=== PATIENT | female | born 1995 | race African-American/Black ===

== ENCOUNTER 2016-06-20 11:57 | Emergency (ER) | payer OTHER ==
[2016-06-20] MEDS ORDERED: ACETAMINOPHEN TAB 325 MG TAB PO STA (12:21)
[2016-06-20] MEDS ORDERED: SODIUM CHLORIDE 0.9% 1,000 ML IV STA (12:21)
[2016-06-20] MEDS ORDERED: ONDANSETRON 4 MG/2 ML VIAL IVP STA ×2 (12:36→14:57)
--- NOTE | 2016-06-20 12:36 | ED ---
Fever HPI - General Chief Complaint: Fever Stated Complaint: Syncope Time Seen by Provider: 06/20/16 12:19 Source: patient Mode of arrival: EMS Limitations: no limitations - History of Present Illness Initial Comments: 20-year-old female states that she has had a fever vomiting and diarrhea for the last 6 days. She has no abdominal pain. She had no blood or mucus in the stool. She was seen at [facility] last night she states they gave her Zofran to the test did not do any x-rays. Or urine specimen. States she's had a mild cough no runny nose earache she has a lot of muscle and body aches. 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 Question of malformation. She states her periods regular and had a test at the other hospital last night. She just had her period this week. - Related Data Home Medications Medication Instructions Recorded Confirmed Butalb/APAP/Caff 50-325-40Mg 1 tab PO BID PRN 06/20/16 06/20/16 [Fioricet 50-325-40] Ibuprofen [Motrin] 800 mg PO BID PRN 06/20/16 06/20/16 Topiramate [Topamax] 50 mg PO QID 06/20/16 06/20/16 levETIRAcetam [Keppra] 500 mg PO Q12H 06/20/16 06/20/16 Allergies Allergy/AdvReac Type Severity Reaction Status Date / Time Sesame Seed Allergy Anaphylaxis Verified 06/20/16 15:21 Review of Systems ROS Statement: Those systems with pertinent positive or pertinent negative responses have been documented in the HPI. ROS Other: All systems not noted in ROS Statement are negative. Constitutional: Reports: fever, chills, weakness Eyes: Denies: eye discharge ENT: Denies: ear pain, throat pain Respiratory: Reports: cough Cardiovascular: Denies: chest pain Endocrine: Reports: fatigue Gastrointestinal: Reports: nausea, vomiting, diarrhea. Denies: abdominal pain Genitourinary: Denies: urgency, dysuria, frequency Skin: Denies: rash Neurological: Denies: headache Hematological/Lymphatic: Denies: easy bleeding, easy bruising Past Medical History Past Medical History: Asthma Additional Past Medical History / Comment(s): pt reports defect on her brain but is not able to remember what its called, it occasionally bleeds. History of Any Multi-Drug Resistant Organisms: MRSA Date of last positivie culture/infection: 2008 Additional Past Surgical History / Comment(s): MRSA bilateral inner thighs 2007 and 2008 Past Psychological History: Anxiety, Depression Smoking Status: Former smoker Past Alcohol Use History: None Reported Past Drug Use History: None Reported General Exam Limitations: no limitations General appearance: alert, other (Appears ill) Head exam: Present: atraumatic Eye exam: Present: normal appearance, PERRL, EOMI. Absent: scleral icterus ENT exam: Present: normal oropharynx, mucous membranes dry, TM's normal bilaterally Neck exam: Present: normal inspection. Absent: tenderness, meningismus Respiratory exam: Present: normal lung sounds bilaterally Cardiovascular Exam: Present: normal rhythm, normal heart sounds GI/Abdominal exam: Present: soft, tenderness (Right upper quadrant) Neurological exam: Present: alert, CN II-XII intact Psychiatric exam: Present: normal affect, normal mood Skin exam: Present: warm, dry Course Vital Signs 06/20/16 06/20/16 06/20/16 12:09 13:42 14:10 Temperature 101 F H 99.8 F H Pulse Rate 116 H 106 H 109 H Respiratory 22 22 16 Rate Blood Pressure 124/67 113/61 114/65 O2 Sat by Pulse 99 100 99 Oximetry 06/20/16 14:40 Temperature Pulse Rate 97 Respiratory 16 Rate Blood Pressure 117/75 O2 Sat by Pulse 100 Oximetry - Reevaluation(s) Reevaluation #1: 06/20/16 15:48 Informed by staff that her insurance [employer] requires transfer, staff spoke to [facility] and give us a list of hospitals [facility] and [facility]. Family would prefer to go to [facility] they were called he would need authorization and currently they have no beds level red and would not accept. Family has agreed to be transferred to [facility] Reevaluation #2: 06/20/16 15:57 Dr. Mcdermott accepts transfer at [facility] Medical Decision Making - Medical Decision Making Social feels nauseated some diarrhea x-ray shows an infiltrate still feels very weak will speak to Dr. Wu the on-call doctor regarding admission - Lab Data Result diagrams: 06/20/16 12:43 06/20/16 12:43 Lab Results 06/20/16 06/20/16 06/20/16 Range/Units 12:43 12:43 12:43 WBC 12.0 H (3.8-10.6) k/uL RBC 4.43 (3.80-5.40) m/uL Hgb 12.0 (11.4-16.0) gm/dL Hct 35.9 (34.0-46.0) % MCV 81.1 (80.0-100.0) fL MCH 27.1 (25.0-35.0) pg MCHC 33.4 (31.0-37.0) g/dL RDW 13.7 (11.5-15.5) % Plt Count 190 (150-450) k/uL Neutrophils % 87 % Lymphocytes % 8 % Monocytes % 5 % Eosinophils % 0 % Basophils % 0 % Neutrophils # 10.4 H (1.3-7.7) k/uL Lymphocytes # 0.9 L (1.0-4.8) k/uL Monocytes # 0.6 (0-1.0) k/uL Eosinophils # 0.0 (0-0.7) k/uL Basophils # 0.0 (0-0.2) k/uL ESR 18 (0-20) mm/hr Sodium 138 (137-145) mmol/L Potassium 4.0 (3.5-5.1) mmol/L Chloride 108 H (98-107) mmol/L Carbon Dioxide 17 L (22-30) mmol/L Anion Gap 13 mmol/L BUN 4 L (7-17) mg/dL Creatinine 0.99 (0.52-1.04) mg/dL Est GFR (MDRD) Af Amer >60 (>60 ml/min/1.73 sqM) Est GFR (MDRD) Non-Af >60 (>60 ml/min/1.73 sqM) Glucose 100 H (74-99) mg/dL Plasma Lactic Acid Ethan (0.7-2.0) mmol/L Calcium 9.1 (8.4-10.2) mg/dL Total Bilirubin 0.7 (0.2-1.3) mg/dL AST 61 H (14-36) U/L ALT 50 (9-52) U/L Alkaline Phosphatase 78 (38-126) U/L Creatine Kinase 133 (30-135) U/L Total Protein 7.4 (6.3-8.2) g/dL Albumin 4.2 (3.5-5.0) g/dL Urine Color Urine Appearance (Clear) Urine pH (5.0-8.0) Ur Specific [place] (1.001-1.035) Urine Protein (Negative) Urine Glucose (UA) (Negative) Urine Ketones (Negative) Urine Blood (Negative) Urine Nitrate (Negative) Urine Bilirubin (Negative) Urine Urobilinogen (<2.0) mg/dL Ur Leukocyte Esterase (Negative) Urine RBC (0-5) /hpf Urine WBC (0-5) /hpf Ur Squamous Epith Cells (0-4) /hpf Urine Bacteria (None) /hpf Urine Mucus (None) /hpf Influenza Type A RNA Not Detected (Not Detectd) Influenza Type B (PCR) Not Detected (Not Detectd) 06/20/16 06/20/16 Range/Units 12:43 12:43 WBC (3.8-10.6) k/uL RBC (3.80-5.40) m/uL Hgb (11.4-16.0) gm/dL Hct (34.0-46.0) % MCV (80.0-100.0) fL MCH (25.0-35.0) pg MCHC (31.0-37.0) g/dL RDW (11.5-15.5) % Plt Count (150-450) k/uL Neutrophils % % Lymphocytes % % Monocytes % % Eosinophils % % Basophils % % Neutrophils # (1.3-7.7) k/uL Lymphocytes # (1.0-4.8) k/uL Monocytes # (0-1.0) k/uL Eosinophils # (0-0.7) k/uL Basophils # (0-0.2) k/uL ESR (0-20) mm/hr Sodium (137-145) mmol/L Potassium (3.5-5.1) mmol/L Chloride (98-107) mmol/L Carbon Dioxide (22-30) mmol/L Anion Gap mmol/L BUN (7-17) mg/dL Creatinine (0.52-1.04) mg/dL Est GFR (MDRD) Af Amer (>60 ml/min/1.73 sqM) Est GFR (MDRD) Non-Af (>60 ml/min/1.73 sqM) Glucose (74-99) mg/dL Plasma Lactic Acid Ethan 1.3 (0.7-2.0) mmol/L Calcium (8.4-10.2) mg/dL Total Bilirubin (0.2-1.3) mg/dL AST (14-36) U/L ALT (9-52) U/L Alkaline Phosphatase (38-126) U/L Creatine Kinase (30-135) U/L Total Protein (6.3-8.2) g/dL Albumin (3.5-5.0) g/dL Urine Color Light Yellow Urine Appearance Cloudy H (Clear) Urine pH 5.0 (5.0-8.0) Ur Specific [place] 1.008 (1.001-1.035) Urine Protein Trace H (Negative) Urine Glucose (UA) Negative (Negative) Urine Ketones 1+ H (Negative) Urine Blood Negative (Negative) Urine Nitrate Negative (Negative) Urine Bilirubin Negative (Negative) Urine Urobilinogen <2.0 (<2.0) mg/dL Ur Leukocyte Esterase Negative (Negative) Urine RBC <1 (0-5) /hpf Urine WBC 3 (0-5) /hpf Ur Squamous Epith Cells 4 (0-4) /hpf Urine Bacteria Rare H (None) /hpf Urine Mucus Rare H (None) /hpf Influenza Type A RNA (Not Detectd) Influenza Type B (PCR) (Not Detectd) 06/20/16 12:37 EKG 06/20/2016 at 1225. Ventricular rate 120 bpm, PA interval 126 ms, QRS duration 74 ms, QT interval 304 ms, sinus tachycardia otherwise normal ECG - Radiology Data Radiology results: report reviewed The cardiomediastinal silhouette, aorta, pulmonary vasculature are within normal limits. There appears to be a patchy right upper lobe opacity on the frontal view. No other consolidation or pleural fusion impression was patchy airspace disease right upper lobe unable to exclude early pneumonia Disposition Clinical Impression: Pneumonia Disposition: OTHER INSTITUTION NOT DEFINED Condition: Fair Referrals: None,Stated [Primary Care Provider] - 1-2 days Time of Disposition: 15:11 - Out of Hospital Transfer - Req. Specs Out of Hospital Transfer - Requested Specifics: Other Emergency Center
[2016-06-20 13:03] LABS: Basophils % (A) 0 %; CH 28.3; Eosinophils % (A) 0 %; HCT 35.9 % (34.0-46.0); HDW 2.49; Luc # (Auto) 0.08; Luc % (Auto) 1; Lymphocytes # (A) 0.9 k/uL (1.0-4.8); Lymphocytes % (A) 8 %; MCH 27.1 pg (25.0-35.0); MCHC 33.4 g/dL (31.0-37.0); MCV 81.1 fL (80.0-100.0); Mean Platelet Volume 8.2; Monocytes # (A) 0.6 k/uL (0-1.0); Monocytes % (A) 5 %; Neutrophils # (A) 10.4 k/uL (1.3-7.7); Neutrophils % (A) 87 %; RBC 4.43 m/uL (3.80-5.40); RDW 13.7 % (11.5-15.5); WBC (Perox) 12.52
[2016-06-20 13:24] LABS: ALT 50 U/L (9-52); AST 61 U/L (14-36); Alkaline Phosphatase 78 U/L (38-126); Anion Gap 13 mmol/L; Blood Urea Nitrogen 4 mg/dL (7-17); Calcium 9.1 mg/dL (8.4-10.2); Carbon Dioxide 17 mmol/L (22-30); Chloride 108 mmol/L (98-107); Creatine Kinase 133 U/L (30-135); Glucose 100 mg/dL (74-99); Non-African American GFR(MDRD) >60 (>60 ml/min/1.73 sqM); Sodium 138 mmol/L (137-145); Total Bilirubin 0.7 mg/dL (0.2-1.3); Total Protein 7.4 g/dL (6.3-8.2)
--- NOTE | 2016-06-20 13:25 | XR ---
EXAMINATION TYPE: XR chest 2V DATE OF EXAM: 06/20/2016 1:12 PM COMPARISON: None HISTORY: 20-year-old female with pain, body aches all over, cough, congestion, and fever for days. TECHNIQUE: PA and lateral views FINDINGS: The cardiomediastinal silhouette, aorta, and pulmonary vasculature are within normal limits. There ap pears to be patchy right upper lobe opacity on the frontal view. No other consolidation or pleural ef fusion. IMPRESSION: Patchy airspace disease right upper lobe. Unable to exclude early pneumonia.
[2016-06-20] MEDS ORDERED: AZITHROMYCIN 500 MG in SODIUM CHLORIDE 0.9% 250 ML IVPB STA (13:44)
[2016-06-20 13:54] LABS: Erythrocyte Sedimentation Rate 18 mm/hr (0-20)
[2016-06-20 14:01] LABS: Appearance,Urine Cloudy (Clear); Bacteria,Urine Rare /hpf; Bilirubin,Urine Negative (Negative); Glucose,Urine (UA) Negative (Negative); Ketones,Urine 1+ (Negative); Leukocyte Esterase,Urine Negative (Negative); Mucus,Urine Rare /hpf; Nitrite,Urine Negative (Negative); Particle Count 2830; Protein,Urine Trace (Negative); RBC,Urine <1 /hpf (0-5); Specific Gravity,Urine 1.008 (1.001-1.035); Squamous Epithelial Cell,Urine 4 /hpf (0-4); UA Billing (MACRO vs. MICRO) MICRO; Urobilinogen,Urine <2.0 mg/dL (<2.0); WBC,Urine 3 /hpf (0-5)
[2016-06-20 16:17] VITALS: RESP 18; TEMP 99.6
[2016-06-20 16:54] VITALS: BP 107/64; PULSE 97
== END 2016-06-20 16:40 | disposition other institution (70) ==
LOC: EC 11:57
DX: J18.9 Pneumonia, unspecified organism (principal); Z87.891 Personal history of nicotine dependence; Z91.018 Allergy to other foods; Z79.899 Other long term (current) drug therapy
CPT/HCPCS: 99285; 96365; 96366; 96375 ×2; 96361; 36415; 93005; 80053; 85652; 82550; 83605; 85025; 81001; 87040; 87086; 87077; 87186; 87502; 71020; J2405; J0456; J0696

== ENCOUNTER 2017-12-14 16:20 | Emergency (ER) | payer OTHER ==
[2017-12-14 16:29] VITALS: RESP 18
[2017-12-14] MEDS ORDERED: SODIUM CHLORIDE 0.9% 1,000 ML IV STA (16:34)
[2017-12-14 16:53] LABS: Basophils % (A) 0 %; Eosinophils # (A) 0.2 k/uL (0-0.7); Eosinophils % (A) 3 %; HCT 32.2 % (34.0-46.0); HGB 10.9 gm/dL (11.4-16.0); Lymphocytes # (A) 1.9 k/uL (1.0-4.8); Lymphocytes % (A) 28 %; MCH 28.3 pg (25.0-35.0); MCHC 33.7 g/dL (31.0-37.0); Mean Platelet Volume 7.5; Monocytes # (A) 0.5 k/uL (0-1.0); Monocytes % (A) 8 %; Neutrophils # (A) 4.2 k/uL (1.3-7.7); Neutrophils % (A) 60 %; Platelet Count 248 k/uL (150-450); RBC 3.83 m/uL (3.80-5.40); RDW 13.8 % (11.5-15.5); WBC 6.9 k/uL (3.8-10.6)
[2017-12-14 17:06] LABS: ALT 19 U/L (9-52); AST 26 U/L (14-36); Albumin 3.9 g/dL (3.5-5.0); Alkaline Phosphatase 44 U/L (38-126); Anion Gap 11 mmol/L; Blood Urea Nitrogen 6 mg/dL (7-17); Calcium 9.7 mg/dL (8.4-10.2); Carbon Dioxide 23 mmol/L (22-30); Chloride 103 mmol/L (98-107); Glucose 70 mg/dL (74-99); Potassium 3.9 mmol/L (3.5-5.1); Sodium 137 mmol/L (137-145); Total Bilirubin 0.5 mg/dL (0.2-1.3); Total Protein 6.8 g/dL (6.3-8.2)
--- NOTE | 2017-12-14 17:14 | ED ---
General Adult HPI - General Chief complaint: Seizure Stated complaint: Unresponsive Source: EMS Mode of arrival: EMS - History of Present Illness Initial comments: Dictation was produced using [employer] dictation software. please excuse any grammatical, word or spelling errors. Chief Complaint: 22-year-old Rican female past medical history of seizures on Keppra presents after a seizure episode today. History of Present Illness: Is a 22-year-old -Wallis[place] female who was at work at work today when she encountered allegedly seizure that was observed by bystanders. Patient has a history of seizure for which she takes Keppra. Patient states she's approximate 5 months . Patient used to take Keppra and Topamax. She has been managed by neurology. She was told to stop taking her Topamax. She takes Keppra 1000 mg twice a day per she states she's been compliant with her medications. Prior to the seizure she has had visual disturbances and has had mild headaches. Patient takes vitamins. According to bystanders patient had tonic-clonic like activity. EMS evaluated patient give her 5 mg of IV Versed with cessation of tonic-clonic activity. Been having issues with vaginal bleeding during this . The ROS documented in this emergency department record has been reviewed and confirmed by me. Those systems with pertinent positive or negative responses have been documented in the HPI. All other systems are other negative and/or noncontributory. - Related Data Home Medications Medication Instructions Recorded Confirmed Folic Acid 1 mg PO DAILY 12/14/17 12/14/17 Metoclopramide [Reglan] 10 mg PO DAILY 12/14/17 12/14/17 Ondansetron [Zofran] 4 mg PO BID 12/14/17 12/14/17 Did-Vldl-Jlfik Acid 1 cap PO DAILY 12/14/17 12/14/17 [-U Capsule (formulary)] Terconazole 0.8% Vaginal Cream 1 applic VAGINAL HS 12/14/17 12/14/17 [Terazol 3] levETIRAcetam [Keppra] 1,000 mg PO DAILY 12/14/17 12/14/17 Allergies Allergy/AdvReac Type Severity Reaction Status Date / Time Sesame Seed Allergy Anaphylaxis Verified 12/14/17 16:58 Review of Systems ROS Statement: Those systems with pertinent positive or pertinent negative responses have been documented in the HPI. ROS Other: All systems not noted in ROS Statement are negative. Past Medical History Past Medical History: Asthma Additional Past Medical History / Comment(s): pt reports defect on her brain but is not able to remember what its called, it occasionally bleeds. History of Any Multi-Drug Resistant Organisms: MRSA Date of last positivie culture/infection: 2008 Additional Past Surgical History / Comment(s): MRSA bilateral inner thighs 2007 and 2008 Past Psychological History: Anxiety, Depression Smoking Status: Former smoker Past Alcohol Use History: None Reported Past Drug Use History: None Reported General Exam - General Exam Comments Initial Comments: PHYSICAL EXAM: General Impression: Alert and oriented x3, not in acute distress HEENT: Normocephalic atraumatic, extra-ocular movements intact, pupils equal and reactive to light bilaterally, mucous membranes moist. Cardiovascular: Heart regular rate and rhythm, S1&S2 audible, no murmurs, rubs or gallops Chest: Lungs clear to auscultation bilaterally, no rhonchi, no wheeze, no rales Abdomen: Bowel sounds present, abdomen soft, non-tender, non-distended, no organomegaly Musculoskeletal: Pulses present and equal in all extremities, no peripheral edema Motor: Power 5/5 bilaterally, no focal deficits noted Neurological: CN II-XII grossly intact, no focal motor or sensory deficits noted Skin: Intact with no visualized rashes Psych: Normal affect and mood Course Vital Signs 12/14/17 12/14/17 12/14/17 16:21 16:47 19:41 Pulse Rate 97 92 77 Respiratory 18 18 18 Rate Blood Pressure 105/60 97/57 97/56 O2 Sat by Pulse 100 100 100 Oximetry Medical Decision Making - Medical Decision Making 22-year-old -Wallis[place] female who states she is 5 months presents after suspected seizure. Patient does have history of epilepsy. Patient has been complaining of recent headaches and visual disturbances for the past couple days. Patient denies any history of blood clots however does state there is family history of blood clots. Laboratory evaluation obtained. Hemoglobin 10.9. Rest of CBC is unremarkable. Metabolic panel is unremarkable. No anion gap. MRV an MRI was obtained. MRI demonstrated 1.1 cm diameter in the right mid temporal lobe cavernous malformation. MRV did not show any findings of dural thromboses or abnormalities. Discussed these imaging findings with patient. Patient states she has known history of mass in her right temporal lobe. She states that she was told it was about the size of a dime. Patient has established care with neurologist in [place]. The reason why her neurologist is so far with patient recently moved to this area. She normally takes Topamax and Keppra however because she is Topamax was discontinued at the moment. At this point, doubt any tonic-clonic seizure episode today given that no physical exam findings of seizure. It is possible that patient experienced a smaller non-generalized seizure. Patient given 1 g of Keppra. Patient given the option of being discharged if she can follow-up with her neurologist versus transfer to another facility with more robust neurologic services. She states that she can follow up with her neurologist tomorrow. She will have transportation with her diana's family. I believe this is reasonable decision. She lives locally and will return to the emergency department should she experience any worsening symptoms or recurrent seizures. EKG interpretation: Ventricular rate 98. Normal sinus rhythm. No LA prolongation, no QTC prolongation, no ST or T-wave changes noted. Overall, this EKG is unremarkable - Lab Data Result diagrams: 12/14/17 16:26 12/14/17 16:26 Lab Results 12/14/17 12/14/17 Range/Units 16:26 16:26 WBC 6.9 (3.8-10.6) k/uL RBC 3.83 (3.80-5.40) m/uL Hgb 10.9 L (11.4-16.0) gm/dL Hct 32.2 L (34.0-46.0) % MCV 84.0 (80.0-100.0) fL MCH 28.3 (25.0-35.0) pg MCHC 33.7 (31.0-37.0) g/dL RDW 13.8 (11.5-15.5) % Plt Count 248 (150-450) k/uL Neutrophils % 60 % Lymphocytes % 28 % Monocytes % 8 % Eosinophils % 3 % Basophils % 0 % Neutrophils # 4.2 (1.3-7.7) k/uL Lymphocytes # 1.9 (1.0-4.8) k/uL Monocytes # 0.5 (0-1.0) k/uL Eosinophils # 0.2 (0-0.7) k/uL Basophils # 0.0 (0-0.2) k/uL Sodium 137 (137-145) mmol/L Potassium 3.9 (3.5-5.1) mmol/L Chloride 103 (98-107) mmol/L Carbon Dioxide 23 (22-30) mmol/L Anion Gap 11 mmol/L BUN 6 L (7-17) mg/dL Creatinine 0.75 (0.52-1.04) mg/dL Est GFR (CKD-EPI)AfAm >90 (>60 ml/min/1.73 sqM) Est GFR (CKD-EPI)NonAf >90 (>60 ml/min/1.73 sqM) Glucose 70 L (74-99) mg/dL Calcium 9.7 (8.4-10.2) mg/dL Magnesium 2.0 (1.6-2.3) mg/dL Total Bilirubin 0.5 (0.2-1.3) mg/dL AST 26 (14-36) U/L ALT 19 (9-52) U/L Alkaline Phosphatase 44 (38-126) U/L Total Protein 6.8 (6.3-8.2) g/dL Albumin 3.9 (3.5-5.0) g/dL Disposition Clinical Impression: Seizure Disposition: HOME SELF-CARE Instructions: Recurrent Seizures in Adults (ED) Is patient prescribed a controlled substance at d/c from ED?: No Referrals: Bradley Bond MD [Primary Care Provider] - 1-2 days Time of Disposition: 20:22
--- NOTE | 2017-12-14 19:01 | MR ---
EXAMINATION TYPE: MR brain wo con DATE OF EXAM: 12/14/2017 COMPARISON: No comparison studies are available. HISTORY: rule out CVT, , pt having headache, seizures for the last 3 days, pt 5 months preg. TECHNIQUE: Standard multiplanar, multisequence MRI departmental protocol. Diffusion weighted imaging was performed. FINDINGS: Within the mid right temporal lobe, immediately lateral to the right temporal horn, is a ro unded T2 hypointense focus with central hyperintensity. The T2 shortening is consistent with hemoside rin staining in the findings consistent with incidental cavernous malformation i.e., benign vascular hamartoma. There is no evidence of recent hemorrhage. No associated mass effect. No associated volume loss. There are no signs of diffusion restriction to suggest acute or subacute infarction. Vascular flow voids are unremarkable. Remainder of the intra-axial and extra-axial examination is unremarkable as is the calvarium and orbi ts and paranasal sinuses, mastoid sinus air cells, and middle ear cavities. 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 Would suggest retrieval of any prior MRI or CT at outside institutions, if t hey exist, to ensure stability over time.
--- NOTE | 2017-12-14 19:03 | MR ---
EXAMINATION TYPE: MR venography head wo con DATE OF EXAM: 12/14/2017 COMPARISON: MRI sequences 12/14/2017. HISTORY: evaluate for CVT, pt also having mri of brain, pt 5months preg, having headaches, seizures, for last 3 days TECHNIQUE: Standard multiplanar 3D VENC multisequence MRV departmental protocol FINDINGS: Dural venous sinuses have normal MR venography appearance. Incidental finding: In the right mid temporal lobe is the previously described 1.1 cm diameter smooth ly marginated T2 hypointense presumed cavernous malformation, discussed in the MRI report. IMPRESSION: 1. Negative MR venogram. 2. Please refer to the MRI examination.
[2017-12-14] MEDS ORDERED: levETIRAcetam IV 1,000 MG in SALINE 1 100ML.BAG IVPB STA (19:15)
[2017-12-14 19:43] VITALS: PULSE 77
[2017-12-14 20:41] VITALS: BP 128/73; TEMP 98.6
== END 2017-12-14 20:40 | disposition home or self-care (01) ==
LOC: EC 16:20
DX: O99.89 Other specified diseases and conditions complicating pregnancy, childbirth and the puerperium (principal); R56.9 Unspecified convulsions; R51 Headache; Z3A.21 21 weeks gestation of pregnancy; Z86.14 Personal history of Methicillin resistant Staphylococcus aureus infection; Z87.891 Personal history of nicotine dependence; Z79.899 Other long term (current) drug therapy
CPT/HCPCS: 99285 ×2; 36415; 93005; 80053; 80177; 83735; 85025; 70544; 70551; J1953

== ENCOUNTER 2018-01-02 22:09 | Emergency (ER) | payer OTHER ==
[2018-01-02 22:18] VITALS: RESP 20
[2018-01-02] MEDS ORDERED: SODIUM CHLORIDE 0.9% 1,000 ML IV STA (22:34)
[2018-01-02] MEDS ORDERED: METOCLOPRAMIDE 5 MG/ML 2 ML VIAL IVP STA (22:35)
--- NOTE | 2018-01-02 22:39 | ED ---
General Adult HPI - General Chief complaint: Weakness Stated complaint: Weakness Time Seen by Provider: 01/02/18 22:22 Source: patient, RN notes reviewed, old records reviewed Mode of arrival: EMS Limitations: no limitations - History of Present Illness Initial comments: Patient is a pleasant 22-year-old female presenting to the emergency department with generalized weakness. Symptoms started around 5 PM. Patient feels weak all over. Patient has had decreased oral intake secondary to nausea. Patient has had occasional vomiting. Patient feels somewhat similar to how she does prior to having a seizure. Patient has known seizure disorder and is on Keppra. Patient states she normally gets seizures a couple times per month. Patient does have some blurry vision. Family has concern the patient has had decreased oral intake. No isolated area of weakness. Patient denies any vaginal bleeding. Patient is a proximal he 5 months . Patient is having some cramping. Patient is 3 para 2. - Related Data Home Medications Medication Instructions Recorded Confirmed Jdx-Palg-Rgvaj Acid 1 cap PO DAILY 12/14/17 01/02/18 [-U Capsule (formulary)] levETIRAcetam [Keppra] 1,000 mg PO DAILY 12/14/17 01/02/18 Allergies Allergy/AdvReac Type Severity Reaction Status Date / Time Sesame Seed Allergy Anaphylaxis Verified 12/14/17 16:58 Review of Systems ROS Statement: Those systems with pertinent positive or pertinent negative responses have been documented in the HPI. ROS Other: All systems not noted in ROS Statement are negative. Constitutional: Denies: fever Eyes: Denies: eye pain ENT: Denies: ear pain Respiratory: Denies: cough Cardiovascular: Denies: chest pain Endocrine: Denies: fatigue Gastrointestinal: Reports: nausea Genitourinary: Denies: dysuria Musculoskeletal: Denies: back pain Skin: Denies: rash Neurological: Reports: headache (Patient does have a headache that started this afternoon and is similar to her chronic headaches.). 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 History of Any Multi-Drug Resistant Organisms: MRSA Date of last positivie culture/infection: 2008 Additional Past Surgical History / Comment(s): MRSA bilateral inner thighs 2007 and 2008 Past Psychological History: Anxiety, Depression Smoking Status: Former smoker Past Alcohol Use History: None Reported Past Drug Use History: None Reported General Exam Limitations: no limitations General appearance: alert, in no apparent distress Head exam: Present: atraumatic Eye exam: Present: normal appearance, PERRL, EOMI ENT exam: Present: normal oropharynx Neck exam: Present: normal inspection Respiratory exam: Present: normal lung sounds bilaterally Cardiovascular Exam: Present: regular rate, normal rhythm GI/Abdominal exam: Present: soft, distended (Consistent with gravid uterus). Absent: tenderness Extremities exam: Present: normal inspection Neurological exam: Present: alert, CN II-XII intact. Absent: motor sensory deficit Expanded Neurological exam: Present: protecting the airway Speech: Present: fluid speech Cranial nerves: EOM's Intact: Normal Sensory exam: Upper Extremity Light Touch: Normal, Lower Extremity Light Touch: Normal Motor strength exam: RUE: 5, LUE: 5, RLE: 5, LLE: 5 Eye Response: (4) open spontaneously Motor Response: (6) obeys commands Verbal Response: (5) oriented Psychiatric exam: Present: normal affect, normal mood Skin exam: Present: normal color Course Vital Signs 01/02/18 22:11 Temperature 97.6 F Pulse Rate 89 Respiratory 20 Rate Blood Pressure 102/58 O2 Sat by Pulse 100 Oximetry EKG Findings - EKG Comments: EKG Findings:: Normal sinus rhythm 64. AL 144. QRS 76. QT 436. QTc 449. Normal axis. Normal QRS. No acute ST change. Medical Decision Making - Medical Decision Making Patient is reevaluated and is feeling better. Patient updated on results. Patient is comfortable with discharge home. Patient is tolerating oral intake. Nausea and headache have resolved - Lab Data Result diagrams: 01/02/18 22:15 01/02/18 22:15 Lab Results 01/02/18 01/02/18 01/02/18 Range/Units 22:15 22:15 22:15 WBC 5.6 (3.8-10.6) k/uL RBC 3.48 L (3.80-5.40) m/uL Hgb 9.9 L (11.4-16.0) gm/dL Hct 29.3 L (34.0-46.0) % MCV 84.3 (80.0-100.0) fL MCH 28.5 (25.0-35.0) pg MCHC 33.9 (31.0-37.0) g/dL RDW 13.3 (11.5-15.5) % Plt Count 230 (150-450) k/uL Neutrophils % 54 % Lymphocytes % 33 % Monocytes % 8 % Eosinophils % 2 % Basophils % 0 % Neutrophils # 3.1 (1.3-7.7) k/uL Lymphocytes # 1.9 (1.0-4.8) k/uL Monocytes # 0.4 (0-1.0) k/uL Eosinophils # 0.1 (0-0.7) k/uL Basophils # 0.0 (0-0.2) k/uL PT 10.0 (9.0-12.0) sec INR 1.0 (<1.2) APTT 24.8 (22.0-30.0) sec Sodium 137 (137-145) mmol/L Potassium 4.5 (3.5-5.1) mmol/L Chloride 109 H (98-107) mmol/L Carbon Dioxide 21 L (22-30) mmol/L Anion Gap 7 mmol/L BUN 8 (7-17) mg/dL Creatinine 0.70 (0.52-1.04) mg/dL Est GFR (CKD-EPI)AfAm >90 (>60 ml/min/1.73 sqM) Est GFR (CKD-EPI)NonAf >90 (>60 ml/min/1.73 sqM) Glucose 69 L (74-99) mg/dL Calcium 9.1 (8.4-10.2) mg/dL Magnesium 1.9 (1.6-2.3) mg/dL Total Bilirubin 0.6 (0.2-1.3) mg/dL AST 25 (14-36) U/L ALT 18 (9-52) U/L Alkaline Phosphatase 44 (38-126) U/L Total Protein 6.6 (6.3-8.2) g/dL Albumin 3.8 (3.5-5.0) g/dL HCG, Quant 7562.0 mIU/mL Urine Color Urine Appearance (Clear) Urine pH (5.0-8.0) Ur Specific [place] (1.001-1.035) Urine Protein (Negative) Urine Glucose (UA) (Negative) Urine Blood (Negative) Urine Nitrite (Negative) Urine Bilirubin (Negative) Urine Urobilinogen (<2.0) mg/dL Ur Leukocyte Esterase (Negative) Urine RBC (0-5) /hpf Urine WBC (0-5) /hpf Ur Squamous Epith Cells (0-4) /hpf Urine Bacteria (None) /hpf Urine Mucus (None) /hpf 01/02/18 Range/Units 23:42 WBC (3.8-10.6) k/uL RBC (3.80-5.40) m/uL Hgb (11.4-16.0) gm/dL Hct (34.0-46.0) % MCV (80.0-100.0) fL MCH (25.0-35.0) pg MCHC (31.0-37.0) g/dL RDW (11.5-15.5) % Plt Count (150-450) k/uL Neutrophils % % Lymphocytes % % Monocytes % % Eosinophils % % Basophils % % Neutrophils # (1.3-7.7) k/uL Lymphocytes # (1.0-4.8) k/uL Monocytes # (0-1.0) k/uL Eosinophils # (0-0.7) k/uL Basophils # (0-0.2) k/uL PT (9.0-12.0) sec INR (<1.2) APTT (22.0-30.0) sec Sodium (137-145) mmol/L Potassium (3.5-5.1) mmol/L Chloride (98-107) mmol/L Carbon Dioxide (22-30) mmol/L Anion Gap mmol/L BUN (7-17) mg/dL Creatinine (0.52-1.04) mg/dL Est GFR (CKD-EPI)AfAm (>60 ml/min/1.73 sqM) Est GFR (CKD-EPI)NonAf (>60 ml/min/1.73 sqM) Glucose (74-99) mg/dL Calcium (8.4-10.2) mg/dL Magnesium (1.6-2.3) mg/dL Total Bilirubin (0.2-1.3) mg/dL AST (14-36) U/L ALT (9-52) U/L Alkaline Phosphatase (38-126) U/L Total Protein (6.3-8.2) g/dL Albumin (3.5-5.0) g/dL HCG, Quant mIU/mL Urine Color Yellow Urine Appearance Cloudy H (Clear) Urine pH 6.0 (5.0-8.0) Ur Specific [place] 1.015 (1.001-1.035) Urine Protein Negative (Negative) Urine Glucose (UA) Negative (Negative) Urine Blood Negative (Negative) Urine Nitrite Negative (Negative) Urine Bilirubin Negative (Negative) Urine Urobilinogen <2.0 (<2.0) mg/dL Ur Leukocyte Esterase Moderate H (Negative) Urine RBC 1 (0-5) /hpf Urine WBC 7 H (0-5) /hpf Ur Squamous Epith Cells 7 H (0-4) /hpf Urine Bacteria Rare H (None) /hpf Urine Mucus Rare H (None) /hpf - Radiology Data Radiology results: report reviewed (Ultrasound shows intrauterine at 23 weeks' 5 days'. No complicating process.) Disposition Clinical Impression: Cephalgia, Nausea Disposition: HOME SELF-CARE Condition: Stable Instructions: Nausea and Vomiting in (ED), General Headache (ED) Additional Instructions: Please follow-up with your neurologist and FORM [facility] tomorrow. Return for seizures , fever, confusion, increased headache, weakness, not tolerating oral intake, worsening or changing symptoms or other concerns. Discharged to labor and delivery for monitoring. Is patient prescribed a controlled substance at d/c from ED?: No Referrals: Bradley Bond MD [Primary Care Provider] - 1-2 days Time of Disposition: 00:38
[2018-01-02 23:13] LABS: Basophils % (A) 0 %; Eosinophils # (A) 0.1 k/uL (0-0.7); Eosinophils % (A) 2 %; HCT 29.3 % (34.0-46.0); HGB 9.9 gm/dL (11.4-16.0); Lymphocytes # (A) 1.9 k/uL (1.0-4.8); Lymphocytes % (A) 33 %; MCH 28.5 pg (25.0-35.0); MCHC 33.9 g/dL (31.0-37.0); MCV 84.3 fL (80.0-100.0); Mean Platelet Volume 7.8; Monocytes # (A) 0.4 k/uL (0-1.0); Monocytes % (A) 8 %; Neutrophils # (A) 3.1 k/uL (1.3-7.7); Neutrophils % (A) 54 %; Partial Thromboplastin Time 24.8 sec (22.0-30.0); Platelet Count 230 k/uL (150-450); RBC 3.48 m/uL (3.80-5.40); RDW 13.3 % (11.5-15.5); WBC 5.6 k/uL (3.8-10.6)
[2018-01-02 23:16] LABS: Albumin 3.8 g/dL (3.5-5.0); Anion Gap 7 mmol/L; Calcium 9.1 mg/dL (8.4-10.2); Carbon Dioxide 21 mmol/L (22-30); Chloride 109 mmol/L (98-107); Glucose 69 mg/dL (74-99); Sodium 137 mmol/L (137-145); Total Bilirubin 0.6 mg/dL (0.2-1.3); Total Protein 6.6 g/dL (6.3-8.2)
[2018-01-02 23:24] LABS: ALT 18 U/L (9-52); AST 25 U/L (14-36); Alkaline Phosphatase 44 U/L (38-126); Blood Urea Nitrogen 8 mg/dL (7-17); Magnesium 1.9 mg/dL (1.6-2.3); Potassium 4.5 mmol/L (3.5-5.1)
[2018-01-02] MEDS ORDERED: ACETAMINOPHEN IVPB STA (23:33)
--- NOTE | 2018-01-02 23:55 | US ---
EXAMINATION TYPE: US OB >= 14 wk fetus DATE OF EXAM: 01/02/2018 COMPARISON: None CLINICAL HISTORY: pain,cramping, no bleeding, seizures TECHNIQUE: OBTA GESTATIONAL AGE / DATING Physician Established: (25 weeks/3 days) EDC: 04/14/2018 Dates by LMP: LMP unknown Dates by First Scan: No previous this is first scan here Dates by Current Scan: (23 weeks/5 days) EDC: 04/26/2018 SURVEY IUP: Single PLACENTA: Posterior PREVIA: No Previa DRAKE: 13.0 cm Normal, mobile internal echoes seen CERVICAL LENGTH (transabdominal: norm > 3.0cm): 3.2 cm BIOMETRY PRESENTATION: Vertex LIE: Longitudinal BPD: 5.7 cm 23 weeks / 4 days HC: 21.9 cm 23 weeks / 6 days AC: 19.1 cm 23 weeks / 6 days FL: 4.4 cm 24 weeks / 3 days ESTIMATED WEIGHT IN GRAMS: 655.9 grams ESTIMATED WEIGHT IN LBS/OZ: 1 lbs. 7 oz. WEIGHT PERCENTAGE BASED ON ESTABLISHED DATES: 4.3% HC/AC: 1.1 Normal FL/AC: 22.9 Normal HEART RATE: 144 bpm RHYTHM: Normal IMPRESSION: The ultrasound gestational age is 23 weeks 5 days. No complicating process seen.
[2018-01-03 00:02] LABS: Appearance,Urine Cloudy (Clear); Bacteria,Urine Rare /hpf; Bilirubin,Urine Negative (Negative); Blood,Urine Negative (Negative); Color,Urine Yellow; Glucose,Urine (UA) Negative (Negative); Ketones,Urine 2+ (Negative); Leukocyte Esterase,Urine Moderate (Negative); Mucus,Urine Rare /hpf; Nitrite,Urine Negative (Negative); Protein,Urine Negative (Negative); RBC,Urine 1 /hpf (0-5); Specific Gravity,Urine 1.015 (1.001-1.035); Squamous Epithelial Cell,Urine 7 /hpf (0-4); Urobilinogen,Urine <2.0 mg/dL (<2.0); WBC,Urine 7 /hpf (0-5)
[2018-01-03 00:49] VITALS: BP 94/51; PULSE 80; TEMP 98.1
== END 2018-01-03 01:11 | disposition home or self-care (01) ==
LOC: EC 22:09
DX: O99.89 Other specified diseases and conditions complicating pregnancy, childbirth and the puerperium (principal); R51 Headache; R11.0 Nausea; H53.8 Other visual disturbances; R40.2142 Coma scale, eyes open, spontaneous, at arrival to emergency department; R40.2252 Coma scale, best verbal response, oriented, at arrival to emergency department; R40.2362 Coma scale, best motor response, obeys commands, at arrival to emergency department; O99.352 Diseases of the nervous system complicating pregnancy, second trimester; G40.909 Epilepsy, unspecified, not intractable, without status epilepticus; Z86.14 Personal history of Methicillin resistant Staphylococcus aureus infection; Z87.891 Personal history of nicotine dependence; Z79.899 Other long term (current) drug therapy; Z91.018 Allergy to other foods; Z3A.23 23 weeks gestation of pregnancy
CPT/HCPCS: 36415; 93005; 80053; 83735; 85025; 85610; 85730; 81001; 84702; 87086; 76805; 99285; 96365; 96375; 96361; J2765; J0131

== ENCOUNTER 2018-02-15 11:02 | Outpatient (CLI) | payer OTHER ==
[2018-02-15 13:24] VITALS: BP 111/55; PULSE 87; RESP 16; TEMP 97.3
--- NOTE | 2018-03-09 00:13 | P.MSEPDOC ---
Presenting Problems - Arrival Data Date of Arrival on Unit: 02/15/18 Time of Arrival on Unit: 11:02 Mode of Transport: Ambulatory - Complaint OB-Reason for Admission/Chief Complaint: Pain Comment: sharp shooting groin pain into legs Medical History - Information : 3 Para: 2 Term: 2 : 0 Abortions: Spontaneous or Elective: 0 Number of Living Children: 2 - Gestational Age Gestational Age by SOFI (wks/days): 31 Weeks and 5 Days - History Complications: Prior Review of Systems - Review of Systems Constitutional: No problems Breast: No problems ENT: No problems Cardiovascular: No problems Respiratory: No problems Gastrointestinal: No problems Genitourinary: No problems Musculoskeletal: No problems Neurological: No problems Skin: No problems Vital Signs - Temperature Temperature: 97.3 F Temperature Source: Temporal Artery Scan - Pulse Right Brachial Pulse Rate: 87 Pulse Assessment Method: Automatic Cuff - Respirations Respiratory Rate: 16 Oxygen Delivery Method: Room Air O2 Sat by Pulse Oximetry: 100 - Blood Pressure Right Arm Sitting Blood Pressure: 111/55 Blood Pressure Mean: 73 Blood Pressure Source: Automatic Cuff Medical Screen Scoring (Pre) - Cervical Exam Dilation: 0 cm = 0 Effacement: Exam Deferred Membranes: Intact - Uterine Contractions Frequency: N/A Duration: N/A Intensity: N/A - Maternal Vital Signs Maternal Temperature: N/A Maternal Blood Pressure: N/A Signs of Preeclampsia: N/A Maternal Respirations: N/A - Pain Assessment Pain Location and Character: Groin Pain Scale Used: Numeric (1 - 10) Pain Intensity: 5 Pain Description: *Acute, Sharp, Shooting Pain Frequency: Occasional Pain Duration: 1 Pain Duration Units: Days Pain Behavior: Facial Grimacing Pain Aggravating Factors: Activity Non-Pharmacological Interventions: Position/Reposition - Maternal Trauma Maternal Trauma: N/A - Assessment Baseline FHR: 130 Heart Rate - NICHD Category: Category I (Normal) = 0 NST: Reactive Position: N/A Station: N/A - Total Score Total Score (Pre): 0 - Level of Risk Level of Risk: Low (0-5) Physician Notification (Pre) - Physician Notified Physician Notified Date: 02/15/18 Physician Notified Time: 12:00 Spoke With: Franky New Order Received: Yes - Notification Comment Comment: Discharge to home, call offices for transfer of care Disposition - Disposition OB Disposition: Discharge to home, Written follow up instructions reviewed Discharge Date: 02/15/18 Discharge Time: 12:05 I agree with the RN Medical Screening Exam: No Physician's MSE Comment: Incomplete documentation Risk & Benefit of care provided described in d/c instruction: No Diagnosis: PAIN, UNSPECIFIED
== END 2018-02-15 12:05 | disposition home or self-care (01) ==
LOC: FBPOP 11:02
PROVIDERS: ATTEND Obstetrics & Gynecology
DX: O26.893 Other specified pregnancy related conditions, third trimester (principal); R10.30 Lower abdominal pain, unspecified; Z3A.31 31 weeks gestation of pregnancy
CPT/HCPCS: 59025; G0463; 99213

== ENCOUNTER 2018-04-18 12:14 | Emergency (ER) | payer OTHER ==
[2018-04-18 12:22] VITALS: RESP 18
[2018-04-18] MEDS ORDERED: CEPHALEXIN 500 MG CAP PO STA (14:31)
--- NOTE | 2018-04-18 14:56 | ED ---
Wound/Laceration HPI - General Chief Complaint: Wound/Laceration Stated Complaint: poss infection Time Seen by Provider: 04/18/18 12:26 Source: patient Mode of arrival: ambulatory Limitations: no limitations - History of Present Illness Initial Comments: 22-year-old female with recent performed 04/02/2018 presents today for evaluation of surgical site. Patient states that she has had no pain, redness or warmth the area however 2 days ago she felt like she stretched too far in one direction and a small gap in the incision line on the right side. Steri strips in place. Patient was here at the hospital for evaluation of her son, as stated that she wanted to get the incision checked out while here. Patient has no current follow-up scheduled with her primary care provider, however she does state that she has established relationship with both PUBLIC TRANSIT SPECIALIST who performed the C/S as well as a primary provider. She denies any fever, chills, malaise, night sweats, drainage from the site, pain to palpation, swelling, abdominal pain, vaginal bleeding. Remaining ROS (-). Patient denies any recent fever, chills, shortness of breath, chest pain, back pain, abdominal pain, nausea or vomiting, numbness or tingling, dysuria or hematuria, constipation or diarrhea, headaches or visual changes, or any other complaints. - Related Data Home Medications Medication Instructions Recorded Confirmed Dve-Sfmr-Yotaa Acid 1 cap PO DAILY 12/14/17 04/18/18 [-U Capsule (formulary)] Docusate [Colace] 100 mg PO DAILY 04/18/18 04/18/18 Ferrous Sulfate [Feosol] 325 mg PO DAILY 04/18/18 04/18/18 Ibuprofen [Motrin] 800 mg PO TID 04/18/18 04/18/18 levETIRAcetam [Keppra Xr] 1,500 mg PO DAILY 04/18/18 04/18/18 Previous Rx's Medication Instructions Recorded Bacitracin Oint 1 applic TOPICAL DAILY 7 Days #1 04/18/18 tube Cephalexin [Keflex] 500 mg PO Q6HR 7 Days #28 cap 04/18/18 Allergies Allergy/AdvReac Type Severity Reaction Status Date / Time Sesame Seed Allergy Anaphylaxis Verified 04/18/18 12:32 Review of Systems ROS Statement: Those systems with pertinent positive or pertinent negative responses have been documented in the HPI. ROS Other: All systems not noted in ROS Statement are negative. Constitutional: Denies: fever, chills, night sweats ENT: Denies: ear pain, throat pain Respiratory: Denies: cough, dyspnea, wheezes, hemoptysis, stridor Cardiovascular: Denies: chest pain, palpitations Endocrine: Denies: fatigue Gastrointestinal: Denies: as per HPI, abdominal pain, nausea, vomiting, diarrhea , constipation, hematemesis, melena, hematochezia Genitourinary: Denies: urgency, dysuria, frequency, hematuria Skin: Reports: as per HPI (surgical incision with steri strips in place). 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 History of Any Multi-Drug Resistant Organisms: MRSA Date of last positivie culture/infection: 2008 MDRO Source:: unsure Additional Past Surgical History / Comment(s): MRSA bilateral inner thighs 2007 and 2008 Past Psychological History: Anxiety, Depression Smoking Status: Never smoker General Exam - General Exam Comments Initial Comments: General: The patient is awake and alert, in no distress, and does not appear acutely ill. Eye: Pupils are equal, round and reactive to light, extra-ocular movements are intact. No nystagmus. There is normal conjunctiva bilaterally. No signs of icterus. Ears, nose, mouth and throat: There are moist mucous membranes and no oral lesions. Neck: The neck is supple, there is no tenderness or JVD. Cardiovascular: There is a regular rate and rhythm. No murmur, rub or gallop is appreciated. Respiratory: Lungs are clear to auscultation, respirations are non-labored, breath sounds are equal. No wheezes, stridor, rales, or rhonchi. Gastrointestinal: Soft, non-distended, non-tender abdomen without masses or organomegaly noted. There is no rebound or guarding present. Bowel sounds are unremarkable. Musculoskeletal: Normal ROM, no tenderness. Strength 5/5. Sensation intact. Pulses equal bilaterally 2+. Neurological: A&O x 3. CN II-XII intact, There are no obvious motor or sensory deficits. Coordination appears grossly intact. Speech is normal. Skin: Skin is warm and dry and no rashes or lesions are noted. Surgical incision present horizontally along the lower abdomen, severe strips in place. There is no tenderness to palpation, surrounding erythema or swelling. small < 1cm portion of dehiscence is noted, no purulent drainage or odor. Steri strips in place. Psychiatric: Cooperative, appropriate mood & affect, normal judgment. Limitations: no limitations Course Vital Signs 04/18/18 04/18/18 12:18 15:19 Temperature 98.4 F 99.1 F Pulse Rate 83 68 Respiratory 18 18 Rate Blood Pressure 108/74 115/76 O2 Sat by Pulse 99 98 Oximetry Medical Decision Making - Medical Decision Making Physical exam revealed a small area of dehiscence of the surgical site. There is no surrounding cellulitis, palpable swelling/abscess or pain with palpation, no warmth to palpation or drainage. At this time I feel pt would benefit from keflex for infection ppx and f/u with surgeon and or primary care provider. Pt denies any systemic symptoms and VS within normal limits. At this time I feel pt is stable for discharge. Return parameters including increasing pain/redness /swelling/fever/ chills or night sweaets or worsening/concering symptoms were discussed at length with patient, who verbalized understanding. Pt is agreeable with plan. Case is discussed in detail with Dr. Levi who agrees impression and plan. Patient was discharged in stable condition with prescription for Keflex 4 times a day 7 days. Disposition Clinical Impression: Wound dehiscence, surgical Disposition: HOME SELF-CARE Condition: Good Instructions: Wound Dehiscence (ED) Additional Instructions: Please use medication as discussed. Please follow-up with OBGYN and or family doctor for reevaluation in next 1-2 days. Please return to emergency room if the symptoms increase or worsen or for any other concerns, including redness, swelling, increasing pain, fever, chills. Prescriptions: Bacitracin Oint 1 applic TOPICAL DAILY 7 Days #1 tube Cephalexin [Keflex] 500 mg PO Q6HR 7 Days #28 cap Is patient prescribed a controlled substance at d/c from ED?: No Referrals: Bradley Bond MD [Primary Care Provider] - 1-2 days Time of Disposition: 14:55
[2018-04-18 15:21] VITALS: BP 115/76; PULSE 68; TEMP 99.1
== END 2018-04-18 15:21 | disposition home or self-care (01) ==
LOC: EC 12:14
DX: T81.31XA Disruption of external operation (surgical) wound, not elsewhere classified, initial encounter (principal); G40.909 Epilepsy, unspecified, not intractable, without status epilepticus; Z79.899 Other long term (current) drug therapy; Z91.018 Allergy to other foods
CPT/HCPCS: 99283

== ENCOUNTER 2018-12-12 14:40 | Emergency (ER) | payer OTHER ==
--- NOTE | 2018-12-12 15:52 | ED ---
Animal Bite HPI - General Chief Complaint: Animal Bite Stated Complaint: [facility]-Dog Bite Time Seen by Provider: 12/12/18 15:39 - History of Present Illness Initial Comments: 23-year-old female presenting today for chief complaint of dog bite to the left upper arm x 1 hour ago. 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 She states she is unsure of his back today. She states the dog was not acting abnormal or sick. She states her systolic it is is at the hospital currently. She denies any vaginal bleeding. She states it is very tiny amount. She states is more like a scratch. She states it was obtained from the teeth however not the cause. Remaining review of systems negative upon arrival patient appears well denies any other areas. Denies fall - Related Data Home Medications Medication Instructions Recorded Confirmed Naw-Gpvb-Delub Acid 1 cap PO DAILY 12/14/17 04/18/18 [-U Capsule (formulary)] Docusate [Colace] 100 mg PO DAILY 04/18/18 04/18/18 Ferrous Sulfate [Feosol] 325 mg PO DAILY 04/18/18 04/18/18 Ibuprofen [Motrin] 800 mg PO TID 04/18/18 04/18/18 levETIRAcetam [Keppra Xr] 1,500 mg PO DAILY 04/18/18 04/18/18 Previous Rx's Medication Instructions Recorded Bacitracin Oint 1 applic TOPICAL DAILY 7 Days #1 04/18/18 tube Cephalexin [Keflex] 500 mg PO Q6HR 7 Days #28 cap 04/18/18 Allergies Allergy/AdvReac Type Severity Reaction Status Date / Time Sesame Seed Allergy Anaphylaxis Verified 12/12/18 16:00 Review of Systems ROS Statement: Those systems with pertinent positive or pertinent negative responses have been documented in the HPI. ROS Other: All systems not noted in ROS Statement are negative. 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 History of Any Multi-Drug Resistant Organisms: MRSA Date of last positivie culture/infection: 2008 MDRO Source:: unsure Additional Past Surgical History / Comment(s): MRSA bilateral inner thighs 2007 and 2008 Past Psychological History: Anxiety, Depression Smoking Status: Never smoker General Exam - General Exam Comments Initial Comments: General: The patient is awake and alert, in no distress, and does not appear acutely ill. Eye: +3 mm pupils are equal, round and reactive to light, extra-ocular movements are intact. No nystagmus. There is normal conjunctiva bilaterally. No signs of icterus. Cardiovascular: There is a regular rate and rhythm. No murmur, rub or gallop is appreciated. Respiratory: Lungs are clear to auscultation, respirations are non-labored, breath sounds are equal. No wheezes, stridor, rales, or rhonchi. Musculoskeletal: Normal ROM, no tenderness. Strength 5/5. Sensation intact. Pulses equal bilaterally 2+. Neurological: A&O x 3. CN II-XII intact, There are no obvious motor or sensory deficits. Coordination appears grossly intact. Speech is normal. Skin: Skin is warm and dry and no rashes. What appears to be superficial abrasion of the left upper arm, inner aspect, no bleeding, laceration, puncture noted. No bruising or redness. Psychiatric: Cooperative, appropriate mood & affect, normal judgment. Medical Decision Making - Medical Decision Making 23-year-old female presenting for dog bite. Appears to be a very superficial bite more so in the abrasion. Appears to be scratched by the teeth. No punctures noted. No deep lacerations. Patient tetanus updated. Wound cleansed. Patient will be discharged with return parameters for redness. Patient will be placed on augmentin for infection ppx. I did speak with dog glaze carrier, she stated the the dog is not sick, its a rescue unsure of rabies status, but denies abnormal behavior, dog is an indoor dog, never a stray. Patient refuses rabies vaccinations today. Patient discharged appearing well. Disposition Clinical Impression: Dog bite, Abrasion Disposition: HOME SELF-CARE Condition: Good Instructions (If sedation given, give patient instructions): Animal Bite (ED), Abrasion (ED) Additional Instructions: Please use medication as discussed. Please follow-up with family doctor in the next 2 days of symptoms have not improved. Please return to emergency room if the symptoms increase or worsen or for any other concerns. Is patient prescribed a controlled substance at d/c from ED?: No Referrals: None,Stated [Primary Care Provider] - 1-2 days Time of Disposition: 15:51
[2018-12-12 16:00] VITALS: BP 119/79; PULSE 86; RESP 18; TEMP 98.6
[2018-12-12] MEDS ORDERED: DIPH,PERTUS(ACELL)TETVAC-LF 0.5 ML VIAL IM ONE (16:01)
== END 2018-12-12 16:26 | disposition home or self-care (01) ==
LOC: EC 14:40
DX: S40.812A Abrasion of left upper arm, initial encounter (principal); G40.909 Epilepsy, unspecified, not intractable, without status epilepticus; Z86.14 Personal history of Methicillin resistant Staphylococcus aureus infection; Z79.1 Long term (current) use of non-steroidal anti-inflammatories (NSAID); Z79.899 Other long term (current) drug therapy; Z91.018 Allergy to other foods; Z23 Encounter for immunization; W54.0XXA Bitten by dog, initial encounter; Y92.69 Other specified industrial and construction area as the place of occurrence of the external cause; Y99.0 Civilian activity done for income or pay
CPT/HCPCS: 90471; 90715; 99283

== ENCOUNTER 2018-12-14 11:55 | Emergency (ER) | payer OTHER ==
[2018-12-14 12:08] VITALS: RESP 18; TEMP 98.5
[2018-12-14] MEDS ORDERED: LORazepam 2 MG/ML INJ IV STA (12:18)
--- NOTE | 2018-12-14 12:39 | ED ---
General Adult HPI - General Chief complaint: Seizure Stated complaint: Seizure Time Seen by Provider: 12/14/18 12:00 Source: patient, EMS, RN notes reviewed Mode of arrival: EMS Limitations: no limitations - History of Present Illness Initial comments: This is a 23-year-old female who comes in stating she has a history of seizures and is on Topamax and Keppra. Patient also states she has a history of migraines. Patient states she has not had a seizure since October. Patient states today at work she had some sort of visual aura and then felt a seizure coming on and she started shaking but she states she was awake during the whole thing. Patient states this shaking episode has occurred multiple times only lasting less than a minute each time. EMS stated that they witnessed a couple of these it is not seemingly typical seizures especially because the patient talks about them. Patient did have one in front of me in the emergency department and again she was speaking throughout the whole shaking episode and had no postictal state. Patient has no numbness weakness patient has no visual disturbances she has some light sensitivity. Patient denies any fever chills or cough per patient denies abdominal pain patient states she wasn't feeling well this morning but just in general since she has no specific complaint. Patient states she has migraines often and this seems typical of a migraine headache at this time. - Related Data Home Medications Medication Instructions Recorded Confirmed Topiramate [Topamax] 50 mg PO BID 12/14/18 12/14/18 levETIRAcetam [Keppra] 1,000 mg PO Q12HR 12/14/18 12/14/18 Allergies Allergy/AdvReac Type Severity Reaction Status Date / Time Sesame Seed Allergy Anaphylaxis Verified 12/14/18 12:25 Review of Systems ROS Statement: Those systems with pertinent positive or pertinent negative responses have been documented in the HPI. ROS Other: All systems not noted in ROS Statement are negative. 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 History of Any Multi-Drug Resistant Organisms: MRSA Date of last positivie culture/infection: 2008 MDRO Source:: unsure Additional Past Surgical History / Comment(s): MRSA bilateral inner thighs 2007 and 2008 Past Psychological History: No Psychological Hx Reported, Anxiety, Depression Smoking Status: Current some day smoker Past Alcohol Use History: None Reported Past Drug Use History: Marijuana General Exam - General Exam Comments Initial Comments: GENERAL: Patient is well-developed and well-nourished. Patient is nontoxic and well- hydrated and is in mild distress. ENT: Neck is soft and supple. No significant lymphadenopathy is noted. Oropharynx is clear. Moist mucous membranes. Neck has full range of motion without eliciting any pain. EYES: The sclera were anicteric and conjunctiva were pink and moist. Extraocular movements were intact and pupils were equal round and reactive to light. Eyelid s were unremarkable. PULMONARY: Unlabored respirations. Good breath sounds bilaterally. No audible rales rhonchi or wheezing was noted. CARDIOVASCULAR: There is a regular rate and rhythm without any murmurs gallops or rubs. ABDOMEN: Soft and nontender with normal bowel sounds. No palpable organomegaly was noted. There is no palpable pulsatile mass. SKIN: Skin is clear with no lesions or rashes and otherwise unremarkable. NEUROLOGIC: Patient is alert and oriented x3. Cranial nerves II through XII are grossly intact. Motor and sensory are also intact. Normal speech, volume and content. Symmetrical smile. MUSCULOSKELETAL: Normal extremities with adequate strength and full range of motion. No lower extremity swelling or edema. No calf tenderness. LYMPHATICS: No significant lymphadenopathy is noted PSYCHIATRIC: Normal psychiatric evaluation. Limitations: no limitations Course Vital Signs 12/14/18 12/14/18 12:01 15:27 Temperature 98.5 F Pulse Rate 95 97 Respiratory 18 18 Rate Blood Pressure 120/80 97/76 O2 Sat by Pulse 100 99 Oximetry Medical Decision Making - Medical Decision Making CT of the brain shows no acute abnormality. I will begin to reevaluate the patient she was still having headaches I gave her 30 of Toradol. Patient's shaking episodes did not seem consistent with seizure she was talking throughout them and had no postictal state. I went back and reevaluate the patient she had just finished eating and drinking something that someone brought for her. Patient was also lying in bed with her baby and playing with her baby. - Lab Data Result diagrams: 12/14/18 12:30 12/14/18 12:30 Lab Results 12/14/18 12/14/18 12/14/18 Range/Units 12:30 12:30 13:20 WBC 4.8 (3.8-10.6) k/uL RBC 4.30 (3.80-5.40) m/uL Hgb 11.8 (11.4-16.0) gm/dL Hct 35.5 (34.0-46.0) % MCV 82.6 (80.0-100.0) fL MCH 27.6 (25.0-35.0) pg MCHC 33.4 (31.0-37.0) g/dL RDW 14.7 (11.5-15.5) % Plt Count 274 (150-450) k/uL Neutrophils % 57 % Lymphocytes % 34 % Monocytes % 4 % Eosinophils % 4 % Basophils % 0 % Neutrophils # 2.7 (1.3-7.7) k/uL Lymphocytes # 1.6 (1.0-4.8) k/uL Monocytes # 0.2 (0-1.0) k/uL Eosinophils # 0.2 (0-0.7) k/uL Basophils # 0.0 (0-0.2) k/uL Sodium 141 (137-145) mmol/L Potassium 4.5 (3.5-5.1) mmol/L Chloride 108 H (98-107) mmol/L Carbon Dioxide 22 (22-30) mmol/L Anion Gap 11 mmol/L BUN 7 (7-17) mg/dL Creatinine 0.80 (0.52-1.04) mg/dL Est GFR (CKD-EPI)AfAm >90 (>60 ml/min/1.73 sqM) Est GFR (CKD-EPI)NonAf >90 (>60 ml/min/1.73 sqM) Glucose 89 (74-99) mg/dL Calcium 9.9 (8.4-10.2) mg/dL Total Bilirubin 1.3 (0.2-1.3) mg/dL AST 38 H (14-36) U/L ALT 11 (9-52) U/L Alkaline Phosphatase 49 (38-126) U/L Total Protein 8.4 H (6.3-8.2) g/dL Albumin 5.0 (3.5-5.0) g/dL Urine Color Light Yellow Urine Appearance Clear (Clear) Urine pH 8.0 (5.0-8.0) Ur Specific [place] 1.007 (1.001-1.035) Urine Protein Negative (Negative) Urine Glucose (UA) Negative (Negative) Urine Ketones Negative (Negative) Urine Blood Small H (Negative) Urine Nitrite Negative (Negative) Urine Bilirubin Negative (Negative) Urine Urobilinogen <2.0 (<2.0) mg/dL Ur Leukocyte Esterase Negative (Negative) Urine RBC 1 (0-5) /hpf Urine WBC 1 (0-5) /hpf Ur Squamous Epith Cells 1 (0-4) /hpf Urine Bacteria Rare H (None) /hpf Disposition Clinical Impression: Migraine, Shaking Disposition: HOME SELF-CARE Instructions (If sedation given, give patient instructions): Migraine Headache (ED) Additional Instructions: Patient should follow-up with her neurologist. Is patient prescribed a controlled substance at d/c from ED?: No Referrals: None,Stated [Primary Care Provider] - 1-2 days Time of Disposition: 16:26
[2018-12-14 12:43] LABS: Basophils % (A) 0 %; Eosinophils # (A) 0.2 k/uL (0-0.7); Eosinophils % (A) 4 %; HCT 35.5 % (34.0-46.0); HGB 11.8 gm/dL (11.4-16.0); Lymphocytes # (A) 1.6 k/uL (1.0-4.8); Lymphocytes % (A) 34 %; MCH 27.6 pg (25.0-35.0); MCHC 33.4 g/dL (31.0-37.0); MCV 82.6 fL (80.0-100.0); Mean Platelet Volume 7.9; Monocytes # (A) 0.2 k/uL (0-1.0); Monocytes % (A) 4 %; Neutrophils # (A) 2.7 k/uL (1.3-7.7); Neutrophils % (A) 57 %; Platelet Count 274 k/uL (150-450); RDW 14.7 % (11.5-15.5); WBC 4.8 k/uL (3.8-10.6)
[2018-12-14 12:57] LABS: African American GFR (CKD) >90 (>60 ml/min/1.73 sqM); Anion Gap 11 mmol/L; Blood Urea Nitrogen 7 mg/dL (7-17); Calcium 9.9 mg/dL (8.4-10.2); Carbon Dioxide 22 mmol/L (22-30); Chloride 108 mmol/L (98-107); Glucose 89 mg/dL (74-99); Sodium 141 mmol/L (137-145); Total Bilirubin 1.3 mg/dL (0.2-1.3)
[2018-12-14 13:01] LABS: AST 38 U/L (14-36); Potassium 4.5 mmol/L (3.5-5.1)
[2018-12-14 13:02] LABS: ALT 11 U/L (9-52); Alkaline Phosphatase 49 U/L (38-126); Total Protein 8.4 g/dL (6.3-8.2)
--- NOTE | 2018-12-14 13:04 | CT ---
EXAMINATION TYPE: CT brain wo con DATE OF EXAM: 12/14/2018 COMPARISON: MRI brain from 1 year ago. HISTORY: Headache post seizure. History of prior seizures. CT DLP: 1028.4 mGycm. Automated Exposure Control for Dose Reduction was Utilized. TECHNIQUE: CT scan of the head is performed without contrast. FINDINGS: There is no acute intracranial hemorrhage, mass effect, or midline shift identified. Medi al right temporal 1.0 cm focus axial image 20 correlates with cavernous malformation on MRI with foca l blooming artifact. The ventricles and sulci are within normal limits in size. The globes are intac t and the visualized sinuses are clear. IMPRESSION: No acute intracranial hemorrhage or midline shift is seen. No significant change from pr ior MRI.
[2018-12-14] MEDS ORDERED: ASPIRIN-ACET-CAFF 250-250-65MG 1 EACH TAB PO STA (13:20)
[2018-12-14 13:50] LABS: Appearance,Urine Clear (Clear); Bacteria,Urine Rare /hpf; Bilirubin,Urine Negative (Negative); Blood,Urine Small (Negative); Color,Urine Light Yellow; Glucose,Urine (UA) Negative (Negative); Ketones,Urine Negative (Negative); Leukocyte Esterase,Urine Negative (Negative); Nitrite,Urine Negative (Negative); Protein,Urine Negative (Negative); RBC,Urine 1 /hpf (0-5); Specific Gravity,Urine 1.007 (1.001-1.035); Squamous Epithelial Cell,Urine 1 /hpf (0-4); Urobilinogen,Urine <2.0 mg/dL (<2.0); WBC,Urine 1 /hpf (0-5)
[2018-12-14] MEDS ORDERED: KETOROLAC 30 MG/ML 1 ML VIAL IVP STA (15:19)
[2018-12-14 15:29] VITALS: BP 97/76; PULSE 97
[2018-12-14] MEDS ORDERED: diphenhydrAMINE 50 MG/ML 1 ML VIAL IVP STA (15:45)
[2018-12-15 09:06] LABS: Levetiracetam (Keppra) 28.5 ug/mL (3.0-60.0)
[2018-12-15 09:10] LABS: Topiramate 1.1 ug/mL (2.0-20.0)
== END 2018-12-14 16:44 | disposition home or self-care (01) ==
LOC: EC 11:55
DX: G43.909 Migraine, unspecified, not intractable, without status migrainosus (principal); R25.1 Tremor, unspecified; G40.909 Epilepsy, unspecified, not intractable, without status epilepticus; F17.200 Nicotine dependence, unspecified, uncomplicated; Z86.14 Personal history of Methicillin resistant Staphylococcus aureus infection; Z79.899 Other long term (current) drug therapy; Z91.018 Allergy to other foods
CPT/HCPCS: 36415; 80053; 80201; 80177; 85025; 81001; 70450; 99284; 96374; 96375 ×2; J2060; J1200; J1885